=== PATIENT | male | born 1950 | race Caucasian/White ===

== ENCOUNTER 2018-04-06 02:45 | Emergency (ER) | payer MEDICARE, OTHER ==
[~2018-04-06] VITALS: Ht 177.8 cm; Wt 74.8 kg
[2018-04-06] MEDS ORDERED: SODIUM CHLORIDE FLUSH 10ML SYR IVF ONE (03:00)
[2018-04-06] MEDS ORDERED: ONDANSETRON ODT 4 MG PO ONE (03:00)
[2018-04-06] MEDS ORDERED: SODIUM CHLORIDE 0.9% 1,000ML IVBOLUS ONE (03:00)
[2018-04-06] MEDS ORDERED: ONDANSETRON ODT 4 MG ONE (03:06)
[2018-04-06] MEDS ORDERED: MORPHINE SULFATE 4 MG/ML, 1ML ONE ×2 (03:07→03:17)
[2018-04-06] MEDS: MORPHINE SULFATE 4 MG/ML, 1ML IVPush PRN ×2 (03:11→03:20)
[2018-04-06 03:15] LABS: BASOPHILS # (AUTO) 0.03 x10^3/uL (0-0.1); BASOPHILS % (AUTO) 0 % (0-1); EOSINOPHILS # (AUTO) 0.05 x10^3/uL (0-0.4); EOSINOPHILS % (AUTO) 0 % (1-7); LYMPHOCYTES # (AUTO) 1.24 x10^3/uL (1-3.4); LYMPHOCYTES % (AUTO) 10 % (22-44); MD NO; MEAN CORPUSCULAR HEMOGLOBIN 33.2 pg (27.5-34.5); MEAN CORPUSCULAR HGB CONC 34.9 g/dL (33.2-36.2); MEAN CORPUSCULAR VOLUME 95.1 fL (81-97); MEAN PLATELET VOLUME 6.7 fL (7.4-10.4); MONOCYTES # (AUTO) 0.43 x10^3/uL (0.2-0.8); MONOCYTES % (AUTO) 4 % (2-9); NEUTROPHILS # (AUTO) 10.24 x10^3/uL (1.8-6.8); NEUTROPHILS % (AUTO) 86 % (42-75); PLATELET COUNT 347 x10^3/uL (130-400); RED BLOOD COUNT 4.85 x10^6/uL (4.38-5.82); RED CELL DISTRIBUTION WIDTH 13.6 % (9.4-14.8)
[2018-04-06] MEDS ORDERED: KETOROLAC 30 MG/1 ML ONE ×2 (03:24→04:15)
[2018-04-06 03:27] LABS: CHLORIDE 108 mmol/L (98-107)
[2018-04-06 03:28] LABS: ALANINE AMINOTRANSFERASE 26 U/L (12-78); ANION GAP 10 mmol/L (5-15); CALCIUM 8.5 mg/dL (8.5-10.1)
[2018-04-06 03:30] LABS: ALKALINE PHOSPHATASE 55 U/L (45-117); BILIRUBIN,TOTAL 0.5 mg/dL (0.2-1.0); TOTAL PROTEIN 7.5 g/dL (6.4-8.2)
[2018-04-06] MEDS ORDERED: KETOROLAC 30 MG/1 ML IVPush ONE ×2 (03:30→04:30)
[2018-04-06] MEDS ORDERED: OMNIPAQUE 350 MG/ML, 100ML BOTTLE ONE (04:02)
[2018-04-06] MEDS ORDERED: TAMSULOSIN 0.4 MG CAP.ER.24H ONE (04:51)
[2018-04-06] MEDS ORDERED: HYDROmorphone 2 MG/ML, 1ML IVPush PRN (05:00)
[2018-04-06] MEDS ORDERED: TAMSULOSIN 0.4 MG CAP.ER.24H PO ONE (05:00)
[2018-04-06 05:25] VITALS: BP 125/74
[2018-04-06 05:30] LABS: CULTURE INDICATED? NO; MICROSCOPIC NOT IND
== END 2018-04-06 06:05 | disposition home or self-care (01) ==
LOC: ED 03:49
DX: N13.2 Hydronephrosis with renal and ureteral calculous obstruction (principal)
CPT/HCPCS: 36415; 74177; 80053; 81003; 83690; 85025; 96374; 96375; 96376; 99285; J1885; J7030; Q0162; Q9967